=== PATIENT | female | born 1995 | race Asian ===

== ENCOUNTER 2017-05-16 21:12 | Emergency (ER) | payer OTHER ==
[~2017-05-16] VITALS: Ht 170.2 cm; Wt 73.5 kg
[2017-05-16 21:48] VITALS: BP 128/79; Ht 170.2 cm; Wt 73.5 kg
== END 2017-05-16 23:39 | disposition home or self-care (01) ==
LOC: ED 21:12
DX: L29.9 Pruritus, unspecified (principal)
CPT/HCPCS: J1100; Q0163

== ENCOUNTER 2018-05-14 23:39 | Emergency (ER) | payer OTHER ==
[~2018-05-14] VITALS: Ht 170.2 cm; Wt 75.7 kg
[2018-05-14 23:42] VITALS: Ht 170.2 cm; Wt 75.7 kg
[2018-05-15 01:43] VITALS: BP 121/76
== END 2018-05-15 01:43 | disposition home or self-care (01) ==
LOC: ED 23:39
DX: T50.995A Adverse effect of other drugs, medicaments and biological substances, initial encounter (principal); Y92.89 Other specified places as the place of occurrence of the external cause
CPT/HCPCS: J1200; J2930; J3490

== ENCOUNTER 2019-01-02 22:47 | Emergency (ER) | payer OTHER ==
[~2019-01-02] VITALS: Ht 170.2 cm; Wt 84.1 kg
[2019-01-03 00:15] VITALS: BP 128/79
== END 2019-01-03 00:15 | disposition home or self-care (01) ==
LOC: ED 22:47
DX: M54.2 Cervicalgia (principal); Z88.6 Allergy status to analgesic agent
CPT/HCPCS: J1885